=== PATIENT | female | born 1935 | race Caucasian/White ===

== ENCOUNTER 2016-11-24 11:45 | Observation (INO) | payer MEDICARE ==
[~2016-11-24] VITALS: Ht 157.5 cm; Wt 107.3 kg
[2016-11-24] MEDS ORDERED: NITROGLYCERIN SL 0.4 MG TAB SL PRN (14:45)
[2016-11-24] MEDS ORDERED: DOCUSATE SOD 100 MG CAP PO PRN (14:45)
[2016-11-24] MEDS ORDERED: TEMAZEPAM 7.5 MG CAP PO PRN (14:45)
[2016-11-24] MEDS ORDERED: ONDANSETRON 4 MG VIAL IV PRN (14:45)
[2016-11-24] MEDS ORDERED: TRAMADOL 50 MG TAB PO PRN (14:45)
[2016-11-24] MEDS ORDERED: SALINE FLUSH 10 ML FLUSH PRN (14:45)
[2016-11-24] MEDS ORDERED: ACETAMINOPHEN 325 MG TAB PO PRN (14:45)
[2016-11-24] MEDS ORDERED: MORPHINE 2 MG/ML SYR IV PRN (14:45)
[2016-11-24] MEDS ORDERED: LORAZEPAM 0.5 MG TAB PO PRN (14:45)
[2016-11-24] MEDS ORDERED: ALU/MAG/SIM 30 ML UDC PO PRN (14:45)
[2016-11-24] MEDS: ASPIRIN 81 MG CHEW TAB PO SCH (15:13)
[2016-11-24 17:20] VITALS: RESP 24; TEMP 97.8
[2016-11-24 17:50] VITALS: BP_SYST 164; BP_SYST 166
[2016-11-24 18:01] VITALS: Ht 157.5 cm; Wt 107.3 kg
[2016-11-24 19:50] VITALS: BP_SYST 150; RESP 18; TEMP 97.9
[2016-11-24] MEDS: LISINOPRIL 20 MG TAB PO SCH (20:53)
[2016-11-24] MEDS: Atorvastatin 20 MG TAB PO SCH ×2 (20:53→21:00)
[2016-11-24] MEDS: SERTRALINE 50 MG TAB PO SCH (20:55)
[2016-11-24] MEDS: SALINE FLUSH 10 ML FLUSH SCH (20:56)
[2016-11-24] MEDS: CARBIDOPA/LEVODOPA 25/100 TAB PO SCH (20:56)
[2016-11-24] MEDS: OXYBUTYNIN 5 MG TAB PO SCH (20:56)
[2016-11-24 23:08] VITALS: BP_SYST 149; RESP 18; TEMP 98.3
[2016-11-25 05:11] VITALS: BP_SYST 157; RESP 18; TEMP 98.7
[2016-11-25] MEDS ORDERED: SODIUM CHLORIDE 0.9% FLUSH BAG 500 ML IV SCH (06:00)
[2016-11-25 07:33] VITALS: BP_SYST 147; RESP 20; TEMP 97.9
[2016-11-25] MEDS: SALINE FLUSH 10 ML FLUSH SCH (08:24)
[2016-11-25] MEDS ORDERED: LEXISCAN 0.4 MG/5 ML SYRINGE IV ONE (09:07)
[2016-11-25] MEDS: ASPIRIN 81 MG CHEW TAB PO SCH (11:44)
[2016-11-25] MEDS: LISINOPRIL 20 MG TAB PO SCH (11:44)
[2016-11-25] MEDS: CARBIDOPA/LEVODOPA 25/100 TAB PO SCH (11:44)
[2016-11-25] MEDS: SERTRALINE 50 MG TAB PO SCH (11:44)
[2016-11-25] MEDS: OXYBUTYNIN 5 MG TAB PO SCH (11:44)
[2016-11-25 15:16] VITALS: BP_SYST 147; RESP 20; TEMP 97.9
== END 2016-11-25 16:05 | disposition home or self-care (01) ==
LOC: ENRESERVDT → ENRESERVTM → ER 11:45 → EMR 14:45 → ENPENDDIS 14:45 → PCU2 17:38
PROVIDERS: ADMIT Internal Medicine Cardiovascular Disease; ATTEND Internal Medicine Cardiovascular Disease
CPT/HCPCS: 36415 ×2; 71010 ×2; 78452 ×2; 80053 ×2; 80061 ×2; 82550 ×2; 82553 ×2; 83735 ×2; 84484 ×2; 85025 ×2; 85379 ×2; 85610 ×2; 85730 ×2; 93005 ×2; 93017 ×2; 93306 ×2; 94799; 99284; A9500; G0378; J2785